=== PATIENT | male | born 1935 | race Caucasian/White ===

== ENCOUNTER 2018-09-09 16:40 | Inpatient (IN) | payer MEDICARE ==
[~2018-09-09] VITALS: Ht 170.2 cm; Wt 84.0 kg
--- OUTSIDE RECORDS SUMMARY | ~2018-09-09 | XMS | Encounter Summary ---
Demographics + + + | Address | [address] | | | [place] [address] | + + + | Home Phone | | + + + | Preferred Language | Unknown | + + + | Marital Status | | + + + | Denominational Affiliation | Unknown | + + + | Race | Unknown | + + + | Ethnic Group | Unknown | + + + Author + + + | Author | [facility] | | | and [place] | + + + | Organization | [facility] | | | and [place] | + + + | Address | Unknown | + + + | Phone | Unavailable | + + + Support + + + + + | Name | Relationship | Address | Phone | + + + + + | Ernesto Flores | ECON | [address] | | | | | [place] | | | | | [address] | | + + + + + Care Team Providers + +------+ + | Care Sld Educational Aide Name | Role | Phone | + +------+ + | Zachariah Girard MD | PCP | Unavailable | + +------+ + Reason for Visit + + + | Reason | Comments | + + + | Phone Management | | + + + | Anticoagulation | | + + + Encounter Details +--------+ + + + + | Date | Type | Department | Care Team | Description | +--------+ + + + + | 08/13/ | Anti-coag | [facility] | Faith Valdez, | Chronic atrial | | 2019 | Telephone | [facility] | [facility] [address] | fibrillation (HCC); | | | | [address] | [place], [place] | Anticoagulation | | | | [place], [place] | [id number] | monitoring, INR | | | | [address] | | range 2-3 | | | | [phone] | | | +--------+ + + + + Social History + +-------+ +--------+ + | Tobacco Use | Types | Packs/Day | Years | Date | | | | | Used | | + +-------+ +--------+ + | Former Smoker | | 1 | 15 | Quit: 05/04/1969 | + +-------+ +--------+ + + +---+---+---+ | Smokeless Tobacco: | | | | | Never Used | | | | + +---+---+---+ + + +---------+ + | Alcohol Use | Drinks/We | oz/Week | Comments | | | ek | | | + + +---------+ + | Yes | 0 | 0.0 | typically one beer per day | | | Standard | | | | | drinks or | | | | | | | | | | equivalen | | | | | t | | | + + +---------+ + + + + | Sex Assigned at | Date Recorded | | | | + + + | Not on file | | + + + + + + + | Job Start Date | Occupation | Industry | + + + + | Not on file | Not on file | Not on file | + + + + + + + + | Travel History | Travel Start | Travel End | + + + + + + | No recent travel history available. | + + documented as of this encounter Progress Notes Faith Valdez, [facility] - 08/13/2018 1415 PDT08/13/18 Patient out traveling , snowbirding. I NR was faxed to us from [facility] in [place], [place]. INR was drawn 08/06/18 and a repo rt was printed on 08/12/18 and it was faxed to us. The INR = 1.9. (within variance of our pro tocol) , so he is in his goal range. I called Mr. Flores on the phone. Let him know the resu lts and to keep taking Warfarin 5mg po daily. Mr. Flores will be back in [place] in a w weeks. Will send note to [facility] to resume his INR monitoring . Next due around 09/10 (4 weeks). [email or web address] braun in this encounter Plan of Treatment +--------+ + + + + | Date | Type | Specialty | Care Team | Description | +--------+ + + + + | 09/28/ | Procedure | Cardiology | Tyrese Fallon MD | | 2018 | visit | | [address] | | | | | | [place], [place] | | | | | | [phone] | | | | | | | | +--------+ + + + + | 01/24/ | Office | Primary Care | Zachariah Girard, | | 2018 | Visit | | [address] | | | | | | [place] | | | | | | [address] | | | | | | | | +--------+ + + + + documented as of this encounter Procedures + +--------+ + + + | Procedure Name | Priori | Date/Time | Associated Diagnosis | Comments | | | ty | | | | + +--------+ + + + | EXTERNAL LAB: | Routin | 08/06/2018 | | Results for this | | ANASTASIIA INR | e | | | procedure are in the | | | | | | results section. | + +--------+ + + + documented in this encounter Results External Lab: Anastasiia INR (08/06/2018) + +-------+ + + + | Component | Value | Ref Range | Performed | Pathologist | | | | | At | Signature | + +-------+ + + + | INR, | 1.9 | | | | | External | | | | | + +-------+ + + + + + | Specimen | + + | Blood | + + documented in this encounter Visit Diagnoses + + | Diagnosis | + + | Chronic atrial fibrillation (HCC) Atrial fibrillation | + + | Anticoagulation monitoring, INR range 2-3 Encounter for long-term (current) use of | | anticoagulants | + + documented in this encounter"
--- OUTSIDE RECORDS SUMMARY | ~2018-09-09 | XMS | Encounter Summary ---
Demographics + + + | Address | [address] | | | [place] [address] | + + + | Home Phone | | + + + | Preferred Language | Unknown | + + + | Marital Status | | + + + | Gnosticist Affiliation | Unknown | + + + | Race | Unknown | + + + | Ethnic Group | Unknown | + + + Author + + + | Author | [facility] | | | and [place] | + + + | Organization | [facility] | | | and [place] | [...] [place] | | | | | [address] | | + + + + + Care Team Providers + +------+ + | Care Hub Borer Name | Role | Phone | + +------+ + | Zachariah Girard MD | PCP | Unavailable | + +------+ + Reason for Visit +--------+ + | Reason | Comments | +--------+ + | LABS | | +--------+ + Encounter Details +--------+ + + + + | Date | Type | Department | Care Team | Description | +--------+ + + + + | 06/22/ | Telephone | [facility] | Zachariah Girard, | LABS | | 2019 | | [facility] | [address] | | | | | [facility]IC [facility] | [place], [place] | | | | | [address] | [address] | | | | | [place], [place] | | | | | | [address] | | | | | | [phone] | | | +--------+ + + + [...] + + documented as of this encounter Plan of Treatment +--------+ + + + + | Date | Type | Specialty | Care Team | Description | +--------+ + + + + | 09/28/ | Procedure | Cardiology | Tyrese Fallon MD | | | 2018 | visit | | [address] | | | | | | [place] | | | | | | [phone] | | | | | | | | +--------+ + + + + | 01/24/ | Office | Primary Care | Zachariah Girard, | | | 2018 | Visit | | [address] | | | | | | [place] | | | | | | [address] | | | | | | | | +--------+ + + + + documented as of this encounter Visit Diagnoses Not on filedocumented in this encounter"
--- OUTSIDE RECORDS SUMMARY | ~2018-09-09 | XMS | Encounter Summary ---
Demographics + + + | Address | [address] | | | [place] [address] | + + + | Home Phone | | + + + | Preferred Language | Unknown | + + + | Marital Status | | + + + | Zoroastrian Affiliation | Unknown | + + + | Race | Unknown | + + + | Ethnic Group | Unknown | + + + Author + + + | Author | [facility] | | | and [place] | + + + | Organization | [facility] | | | and [place] | + + + | Address | Unknown | + + + | Phone | Unavailable | + + + Support + + + + + | Name | Relationship | Address | Phone | + + + + + | Ernesto Flores | ECON | [address] | | | | | [place] | | | | | [address] | | + + + + + Care Team Providers + +------+ + | Care Production Control Scheduler Name | Role | Phone | + +------+ + | Zachariah Girard MD | PCP | Unavailable | + +------+ + Encounter Details +--------+ + + + + | Date | Type | Department | Care Team | Description | +--------+ + + + + | 02/25/ | Abstract | [facility] | Era Zachariah Nieto, | | | 2018 | | [facility] | [address] | | | | | CL[facility] | [place], [place] | | | | | [address] | [address] | | | | | [place], [place] | | | | | | [address] | | | | | | [phone] | | | +--------+ + + + [...] | Tyrese Fallon MD | | | 2019 | visit | | [address] | | | | | | [place], [place] | | | | | | [address] | | | | | | | | +--------+ + + + + | 01/24/ | Office | Primary Care | Zachariah Girard, | | | 2018 | Visit | | [address] | | | | | | [place] | | | | | | [address] | | | | | | | | +--------+ + + + + documented as of this encounter Procedures + +--------+ + + + | Procedure Name | Priori | Date/Time | Associated Diagnosis | Comments | | | ty | | | | + +--------+ + + + | EXTERNAL LAB: | Routin | 06/23/2018 | | Results for this | | HEMOGLOBIN A1C | e | | | procedure are in the | | | | | | results section. | + +--------+ + + + documented in this encounter Results External Lab: Hemoglobin A1c (06/23/2018) + +-------+ + + + | Component | Value | Ref Range | Performed | Pathologist | | | | | At | Signature | + +-------+ + + + | Hemoglobin | 6.7 | % | | | | A1c, | | | | | | external | | | | | + +-------+ + + + + + | Specimen | + + | Blood | + + documented in this encounter Visit Diagnoses Not on filedocumented in this encounter"
--- OUTSIDE RECORDS SUMMARY | ~2018-09-09 | XMS | Clinical Summary ---
Demographics + + + | Address | [address] | | | [place] [address] | + + + | Home Phone | | + + + | Preferred Language | Unknown | + + + | Marital Status | | + + + | Presybeterian Affiliation | Unknown | + + + | Race | Unknown | + + + | Ethnic Group | Unknown | + + + Author + + + | Author | [facility] | | | and [place] | + + + | Organization | [facility] | | | and [place] | + + + | Address | Unknown | + + + | Phone | Unavailable | + + + Support + + + + + | Name | Relationship | Address | Phone | + + + + + | Ernesto Flores | ECON | [address] | | | | | [place] | | | | | [address] | | + + + + + Care Team Providers + +------+ + | Care Barrel Polisher Name | Role | Phone | + +------+ + | Zachariah Girard MD | PP | Unavailable | + +------+ + Allergies No Known Allergies Medications + + + +---------+------+------+-------+ | Medication | Sig | Dispensed | Refills | Star | End | Statu | | | | | | t | Date | s | | | | | | Date | | | + + + +---------+------+------+-------+ | Blood Glucose | 1 strip by Does not | | 0 | | | Activ | | Monitoring Suppl | apply route Daily. | | | | | e | | (ONE TOUCH ULTRA) | | | | | | | + + + +---------+------+------+-------+ | albuterol | Inhale 2 puffs into | | 0 | | | Activ | | (VENTOLIN HFA) 90 | the lungs every 4 | | | | | e | | mcg/puff inhaler | hours as needed. | | | | | | + + + +---------+------+------+-------+ | PATANASE 0.6 % | by Nasal route 2 | | 0 | 05/1 | | Activ | | SOLN | times daily. | | | 2/20 | | e | | | | | | 14 | | | + + + +---------+------+------+-------+ | atorvaSTATin | Take 80 mg by mouth | | 0 | | | Activ | | (LIPITOR) 80 MG | nightly. | | | | | e | | tablet | | | | | | | + + + +---------+------+------+-------+ | fluticasone | 2 sprays by Nasal | | 0 | 06/0 | | Activ | | (FLONASE) 50 | route Daily as | | | 2/20 | | e | | mcg/nasal spray | needed. | | | 15 | | | + + + +---------+------+------+-------+ | aspirin 81 mg EC | Take 81 mg by mouth. | | 0 | | | Activ | | tablet | | | | | | e | + + + +---------+------+------+-------+ | metoprolol | Take 50 mg by mouth | | 0 | | | Activ | | succinate | Daily. | | | | | e | | (TOPROL-XL) 50 mg 24 | | | | | | | | hr tablet | | | | | | | + + + +---------+------+------+-------+ | lisinopril | TAKE 1 TABLET BY | 90 | 0 | 06/2 | | Activ | | (PRINIVIL,ZESTRIL) | MOUTH DAILY | tablet | | 6/20 | | e | | 2.5 MG tablet | | | | 18 | | | + + + +---------+------+------+-------+ | | Take 1-2 tablets by | 30 | 0 | 08/1 | | Activ | | oxyCODONE-acetaminop | mouth every 6 hours | tablet | | 3/20 | | e | | hen (PERCOCET) 5-325 | as needed for Pain. | | | 18 | | | | mg per | | | | | | | | tabletIndications: | | | | | | | | Acute pain of right | | | | | | | | knee | | | | | | | + + + +---------+------+------+-------+ | | Take 2 tablets by | 360 | 3 | 08/1 | | Activ | | glipiZIDE-metFORMIN | mouth 2 times daily | tablet | | 7/20 | | e | | (METAGLIP) 2.5-250 | (before meals). TAKE | | | 18 | | | | MG per tablet | 1 TABLET BY MOUTH | | | | | | | | TWICE DAILY | | | | | | + + + +---------+------+------+-------+ | glucose blood | Apply 1 each | 100 | 3 | 08/2 | | Activ | | test strips (ONE | topically Daily. | each | | 0/20 | | e | | TOUCH ULTRA TEST) | | | | 18 | | | | stripIndications: | | | | | | | | Diabetic peripheral | | | | | | | | neuropathy (HCC) | | | | | | | + + + +---------+------+------+-------+ | lisinopril | TAKE 1 TABLET BY | 90 | 1 | 11/2 | | Activ | | (PRINIVIL,ZESTRIL) | MOUTH DAILY | tablet | | 6/20 | | e | | 2.5 MG tablet | | | | 18 | | | + + + +---------+------+------+-------+ | montelukast | TAKE 1 TABLET BY | 90 | 1 | 11/2 | | Activ | | (SINGULAIR) 10 mg | MOUTH EVERY DAY | tablet | | 6/20 | | e | | tablet | | | | 18 | | | + + + +---------+------+------+-------+ | warfarin | Take 1 tablet by | 90 | 1 | 05/0 | | Activ | | (COUMADIN) 5 mg | mouth Daily. | tablet | | 9/20 | | e | | tablet | | | | 19 | | | + + + +---------+------+------+-------+ | warfarin | TAKE 1 TABLET BY | 90 | 1 | 05/1 | 05/0 | Disco | | (COUMADIN) 5 mg | MOUTH DAILY OR | tablet | | 8/20 | 8/20 | ntinu | | tablet | DIRECTED BY CLINIC | | | 18 | 19 | ed | + + + +---------+------+------+-------+ Active Problems + + | Patient Care Coordination Note | + + | PREVENTIVE PLAN FOR | | Maida Flores Date 12/16/2016 Medicare Covered Services and Your | | Long-Term Plan: Preventive Service Frequency for Medicare Coverage Last done | | Plan Annual Wellness Visit Yearly 10/04/2015 Annual Vaccinations | | Influenza Vaccine Yearly - Every Fall Pneumococcal Vaccine - PPSV-23 | | Once after age 65 09/07/2008 Complete Pneumococcal Vaccine - PCV-13 Once after age | | 65 2017 DONE Zoster (Shingles) Vaccine - Covered partially with Part D Once (age | | 60-80) Not on file recommended Diphtheria and Tetanus (DT) At time of injury | | only Not on file Time of injury Hep B Vaccine Mod/High Risk Once Not on file | | Discuss Prostate Cancer PSA lab (if appropriate) Yearly done in | | 2010 Not recommended at your age Colorectal Cancer Fecal Occult Blood Test | | Yearly OR - - Colonoscopy Every 10 years 2006 Consider repeat in 2017, but | | probably not necessary since you haven't had polyps High Risk (History of polyps, | | family history of colon cancer/polyps) Every 5 years - - Cardiovascular | | Screening Cholesterol/Lipid Tests Every 5 years 10/22/2016 Yearly Ultrasound for | | AAA - Welcome to Medicare - Only [facility] AAA or males age 65-75 and a history of | | tobacco use Once - n/a- Diabetes Screening Glucose Test Yearly | | 12-05-17 (fasting CMP) Yearly Screening Glucose Test if Pre-Diabetic Twice a year | | - - Nutrition Evaluation Varies - - Additional Covered Services | | Hepatitis C Screening One time if born between 8029-7880 - n/a- End of life | | planning Consider yearly discussion Discuss yearly Discuss yearly Additional | | Recommendations: Diet: Exercise: I recommend moderate exercise (such as walking, | | swimming, gardening) for a total of at least 30 minutes at least five days per week. | | Work out with light weights at least a couple of times per week Yoga, sushil chi, and | | simple balance exercises at home can help prevent falls Fall Prevention Plan: | | Other: Additional Recommendations:You could read lots of books and articles about what | | a healthy lifestyle looks like. However, most people don't have the time to read those | | books and articles - let alone follow their instructions. Here is a few simple targets | | that can make a big impact on living longer and better.FORMULA FOR HEALTH0 - NO | | smoking, tobacco use. Also NO sunburns - please use sunscreen to protect yourself. 5 - | | Servings of fruits and vegetables per day 10 - Minutes of meditation per day30 - Keep | | your body mass index under this number (your Body mass index is 27.88 kg/m .)150 - | | minutes of moderate paced exercise per week - an example is walking at a pace where you | | can hold a conversation but would have a hard time singing. Another option is 90 | | minutes of high intensity exercise weekly such as running. Quick Reference | | InformationServices Ordered Today: | | | |Additional Recommendations: | | Diet: | | | |Exercise: | | I recommend moderate exercise (such as walking, swimming, gardening) for a total of at l east 30 minutes at least five days per week. | | Work out with light weights at least a couple of times per week | | Yoga, sushil chi, and simple balance exercises at home can help prevent falls | | Fall Prevention Plan: | | | |Other: | | | | | |Additional Recommendations: | |You could read lots of books and articles about what a healthy lifestyle looks like. Howev er, most people don't have the time to read those books and articles - let alone follow thei r instructions. | |Here is a few simple targets that can make a big impact on living longer and better. | | | |FORMULA FOR HEALTH | | | |0 - NO smoking, tobacco use. Also NO sunburns - please use sunscreen to protect yourself. | | | |5 - Servings of fruits and vegetables per day | | | |10 - Minutes of meditation per day | | | |30 - Keep your body mass index under this number (your Body mass index is 27.88 kg/m .) | | | |150 - minutes of moderate paced exercise per week - an example is walking at a pace where y ou can hold a conversation but would have a hard time singing. Another option is 90 minutes of high intensity exercise weekly such as running. 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 | + + + +---+ | CAD (coronary artery disease) | | + +---+ + + | Overview: s/p CABG 3 vessels, 08/03, [facility]; redo 02/10 1 | | vessel: rSVG to mid-distal LAD, TIERNEY DEE Cath 10/21/13 | | with SVG-LAD PCI, Dr Mercado, Tierney Dee Last Assessment & | | Plan: Discussed his chest pain, need to make sure that he | | follows up with cardiology. Nitroglycerin prescription given. | | Advised to seek care sooner if worsening symptoms. | + + + +---+ | Hypercholesterolemia | | + +---+ + + | Last Assessment & Plan: At goal, continue to follow, no | | change in medications, although may consider higher potency | | statin based on newest guidelines. | + + + +---+ | Restless legs syndrome | | + +---+ | Rhinitis, allergic | | + +---+ | Sleep apnea | | + +---+ + + | Overview: 12/23/2017: Last visit was in 2010. He continues to | | use cpap nightly. Has respironics REmStar 30/30 nights, 29/30 | | nights >=4 hours, current pressure [id number], no AHI Last | | Assessment & Plan: Assessment and Plan1. Central and | | Obstructive Sleep Apnea-Hypopnea Syndrome,moderate (AHI: 25.4) | | with the patient continuing to have good treatment compliance and | | clinical improvement. Questions regarding the treatment were | | answered. He continues to use cpap nightly. Has respironics | | REmStar 30/30 nights, 29/30 nights >=4 hours, current pressure | | [id number], no AHI. His cpap is well over the 5 year life span, so | | will order a new autopap. PLAN: 1. Order Autopap at 9 | | cmH2O to [id number] 2. Try new nasal mask3. Return for follow up in | | one year or earlier if there is any problem | + + + +---+ | Tachy-lorie syndrome | | + +---+ + + | Overview: Story: DDDR pacemaker | + + + +---+ | Type 2 diabetes, controlled, with peripheral neuropathy | | + +---+ + + | Overview: Problem onset is 1999; Last Assessment & Plan: | | Essentially at goal. No change in medications. Encouraged to | | work on regular exercise, healthy diet, continue to follow A1c. | + + Resolved Problems + + + + | Problem | Noted | Resolved | | | Date | Date | + + + + | Atrial fibrillation | 11/18/19 | | | | | 6 | + + + + Encounters +--------+ + + + + | Date | Type | Specialty | Care Team | Description | +--------+ + + + + | 09/08/ | Refill | | Zachariah Girard, | Medication Refill | | 2018 | | | MD | | +--------+ + + + + | 08/13/ | Anti-coag | | Faith Valdez, | Chronic atrial | | 2018 | Telephone | | [facility] | fibrillation (HCC); | | | | | | Anticoagulation | | | | | | monitoring, INR | | | | | | range 2-3 | +--------+ + + + + | 06/28/ | Abstract | | Zachariah Girard, | | | 2018 | | | MD | | +--------+ + + + + | 06/22/ | Telephone | | Zachariah Girard, | LABS | | 2018 | | | MD | | +--------+ + + + + from Last 3 Months Immunizations + + + + | Name | Dates Previously Given | Next Due | + + + + | PNEUMOCOCCAL | 12/16/2016 | | | CONJUGATE 13-VALENT | | | | (PCV13) | | | + + + + | PNEUMOCOCCAL | 09/07/2008 | | | POLYSACCHARIDE | | | | 23-VALENT (PPSV23) | | | + + + + Family History + + + + + | Medical History | Relation | Name | Comments | + + + + + | Dementia | Brothpradeep | Rodney | | | | | - half | | | | | brother | | + + + + + | Parkinsonism | Brother | Rodney | | | | | - half | | | | | brother | | + + + + + | Prostate cancer | Father | | possible, apparently "no trace of it" at | | | | | time of surgery | + + + + + | Ulcer disease | Father | | | + + + + + | Liver disease | Mother | | Alcoholic liver disease | + + + + + | No known problems | Sister | Elisa - | | | | | half | | | | | sister | | + + + + + + + + + + | Relation | Name | Status | Comments | + + + + + | Brother | Rodney - | | Parkinsonian dementia | | | half | (Age | | | | brother | 67) | | + + + + + | Brother | Xavier | | substance abuse | | | | (Age | | | | | 51) | | + + + + + | Father | | | heart, kidney disease | | | | (Age | | | | | 76) | | + + + + + | Maternal Aunt | No | Alive | | | | Children | | | | | (only | | | | | step) | | | + + + + + | Mother | | | Laennec's cirrhosis | | | | (Age | | | | | 42) | | + + + + + | Sister | Elisa - | Alive | | | | half | | | | | sister | | | + + + + + Social History + [...] recent travel history available. | + + Last Filed Vital Signs + + + + | Vital Sign | Reading | Time Taken | + + + + | Blood Pressure | 142/60 | 02/22/2018945 PDT | + + + + | Pulse | 74 | 02/22/2018945 PDT | + + + + | Temperature | 36.8 C (98.3 F) | 12/16/2016 1033 PDT | + + + + | Respiratory Rate | 16 | 02/22/2018945 PDT | + + + + | Oxygen Saturation | 98% | 02/22/2018945 PDT | + + + + | Inhaled Oxygen | - | - | | Concentration | | | + + + + | Weight | 80.3 kg (177 lb) | 02/22/2018945 PDT | + + + + | Height | 171 cm (5' 7.32") | 12/18/20173 PDT | + + + + | Body Mass Index | 27.46 | 12/18/2017 1503 PDT | + + + + Plan of Treatment +--------+ + + + + | Date | Type | Specialty | Care Team | Description | +--------+ + + + + | 09/28/ | Procedure | | Tyrese Fallon MD | | | 2018 | visit | | [address] | | | | | | [place], [place] | | | | | | [id number] | | | | | | | | +--------+ + + + + | 01/24/ | Office | | Zachariah Girard, | | | 2018 | Visit | | [address] | | | | | | [place] | | | | | | [id number] | | | | | | | | +--------+ + + + + + + + + + | Health Maintenance | Due Date | Last Done | Comments | + + + + + | Diabetic Eye Exam | | | | | | 6 | | | + + + + + | Vaccine: | | | | | Dtap/Tdap/Td (1 - | 7 | | | | Tdap) | | | | + + + + + | Vaccine: Zoster (1 | | | | | of 2) | 8 | | | + + + + + | Diabetic Foot Exam | | 10/05/2014 | | | | 6 | | | + + + + + | Primary Care | | 02/22/2018, 12/23/2017, | | | Outreach (Very | 8 | 12/18/2017, Additional history | | | Intense Risk) | | exists | | + + + + + | Adult Annual | | 12/18/2017, 12/18/2017, | | | Wellness Visit | 9 | 12/16/2016, Additional history | | | | | exists | | + + + + + | Hemoglobin A1c | | 06/23/2018, 11/26/2017, | | | Screening | 9 | 06/26/2017, Additional history | | | | | exists | | + + + + + | Vaccine: Influenza | | | | | (Season Ended) | 9 | | | + + + + + | Vaccine: | Completed | 12/16/2016, 09/07/2008 | | | Pneumococcal 65+ | | | | | High/Highest Risk | | | | + + + + + Implants + +--------+------+ +--------+--------+--------+ | Implanted | Type | Area | Manufacture | Device | Shelf | Model | | | | | r | | Expira | / | | | | | | Identi | tion | Serial | | | | | | fier | Date | / Lot | + +--------+------+ +--------+--------+--------+ | Alead-08/20/2001Implanted: | Lead | | [facility] [place] | | | [id number] | | 08/20/2001 (Quantity not on | | | MEDICAL - | | | /[id number] | | file) | | | STJU | | | 4 / | + +--------+------+ +--------+--------+--------+ | Rv Lead-08/20/2001Implanted: | Lead | | [facility] [place] | | | [id number] | | 08/20/2001 (Quantity not on | | | MEDICAL - | | | /[id number] | | file) | | | STJU | | | 1 / | + +--------+------+ +--------+--------+--------+ | Kgfh-Xlolyefxl-3/15/2011Impla | Pacema | | [facility] [place] | | | [id number] | | nted: 11/15/2010 by Vasyl | rodolfo | | MEDICAL - | | | | | Tyrese Jeffers MD (Quantity not on | | | STJU | | | /[id number] | | file) | | | | | | 20 / | + +--------+------+ +--------+--------+--------+ Procedures + +--------+ + + + | Procedure Name | Priori | Date/Time | Associated Diagnosis | Comments | | | ty | | | | + +--------+ + + + | EXTERNAL LAB: | Routin | 08/06/2018 | | Results for this | | PROTIME INR | e | | | procedure are in the | | | | | | results section. | + +--------+ + + + | EXTERNAL LAB: | Routin | 06/23/2018 | | Results for this | | HEMOGLOBIN A1C | e | | | procedure are in the | | | | | | results section. | + +--------+ + + + | LABS - EXTERNAL SCAN | | 06/23/2018 | | Results for this | | | | 0:00 PST | | procedure are in the | | | | | | results section. | + +--------+ + + + from Last 3 Months Results External Lab: Protime INR (08/06/2018) + +-------+ + + + [...] + + | Blood | + + External Lab: Hemoglobin A1c (06/23/2018) + +-------+ [...] + + | Blood | + + LABS - EXTERNAL SCAN (06/23/2018 0:00 PST) + + + | Narrative | Performed At | + + + | Ordered by an | | | unspecified provider. | | + + + from Last 3 Months Insurance + +--------+ +--------+ +---------+--------+ | Payer | Benefi | Subscriber | Effect | Phone | Address | Type | | | t Plan | ID | deborah | | | | | | / | | Dates | | | | | | Group | | | | | | + +--------+ +--------+ +---------+--------+ | MEDICARE | MEDICA | [id number] | 06/04/19 | [phone] | | Medica | | | RE | | 03-Pre | 5 | | re | | | PART A | | sent | | | | | | AND B | | | | | | + +--------+ +--------+ +---------+--------+ | AARP | AARP | [id number] | 06/04/19 | [phone] | | Indemn | | | MDCR | | 03-Pre | 0 | | ity | | | SUPPL | | sent | | | | + +--------+ +--------+ +---------+--------+ | MEDICARE | ACO | [id number] | | [phone] | | Medica | | | MEDICA | | 016-Pr | 5 | | re | | | RE A | | esent | | | | | | AND B | | | | | | | | RMACO | | | | | | + +--------+ +--------+ +---------+--------+ | AARP | AARP | [id number] | 06/04/19 | [phone] | | Indemn | | | MDCR | | 03-Pre | 0 | | ity | | | SUPPL | | sent | | | | + +--------+ +--------+ +---------+--------+ + +--------+ +--------+ + + | Guarantor Name | Accoun | Relation to | Date | Phone | Billing Address | | | t Type | Patient | of | | | | | | | | | | + +--------+ +--------+ + + | Harpal Flores | Person | Self | [birth year] | [address] | | | al/[place] | | 1936 | [phone] | | | [address] | | | [address] (Home) | [place] [address] | + +--------+ +--------+ + + | Harpal Flores | Person | Self [birth year] | [address] | | | al/Fam | | 1936 | [phone] | [address] | | | [address] | | | [address] (Home) | [place] [address] | + +--------+ +--------+ + + Advance Directives Patient has advance care planning documents on file. For more information, please contact:Annemarie Merged with [facility] [place] [address]
--- OUTSIDE RECORDS SUMMARY | ~2018-09-09 | XMS | Encounter Summary ---
Demographics + + + | Address | [address] | | | [place] [address] | + + + | Home Phone | | + + + | Preferred Language | Unknown | + + + | Marital Status | | + + + | Spiritism Affiliation | Unknown | + + + | Race | Unknown | + + + | Ethnic Group | Unknown | + + + Author + + + | Author | [facility] | | | and [place] | + + + | Organization | [facility] | | | and [place] | + + + | Address | Unknown | + + + | Phone | Unavailable | + + + Support + + + + + | Name | Relationship | Address | Phone | + + + + + | Ernesto Flores | ECON | [address] | | | | | [place] | | | | | [address] | | + + + + + Care Team Providers + +------+ + | Care Med Peds Name | Role | Phone | + +------+ + | Zachariah Girard MD | PCP | Unavailable | + +------+ + Reason for Visit + + + | Reason | Comments | + + + | Medication Refill | | + + + Encounter Details +--------+--------+ + + + | Date | Type | Department | Care Team | Description | +--------+--------+ + + + | 09/08/ | Refill | [facility] | Zachariah Girard, | Medication Refill | | 2018 | | [facility] | [address] | | | | | [facility] | [place], [place] | | | | | [address] [facility] | [phone] | | | | | [place], [place] | | | | | | [address] | | | | | | [phone] | | | +--------+--------+ + + + Social History + +-------+ [...] RODRIGUEZ | | | | | | [phone] | | | | | | | [...]
[2018-09-09] MEDS ORDERED: COUMADIN5 MG PO (17:06)
[2018-09-09] MEDS ORDERED: GLUCOPHAGE500 MG PO (17:07)
[2018-09-09] MEDS ORDERED: LISINOPRIL2.5 MG PO (17:08)
[2018-09-09] MEDS ORDERED: METOPROLOL SUCC50 MG PO (17:10)
[2018-09-09] MEDS ORDERED: JANUMET XR 50-1 EAC1 PO (17:11)
[2018-09-09] MEDS ORDERED: GLIPIZIDE-METF1 EACH PO (17:14)
[2018-09-09] MEDS ORDERED: MONTELUKAST SOD10 MG PO (17:19)
[2018-09-09] MEDS ORDERED: ASPIR 8181 MG PO (17:20)
--- NOTE | 2018-09-09 20:45 | NUR ---
PT ARRIVED TO UNIT VIA STRECHTER FROM PACU. PT AAOX4 AND RESPONDING APPROPRIATELY. AFIB ON MONITOR. CURRENTLY ON 10L NONREBREATHER, R/T IN ROOM TO ASSESS PT. BOWEL TONES HYPERACTIVE, NO NAUSEA, NO DISTENSION. DUE TO VOID. NO BM. DENIES PAIN. FFP TO BE GIVEN.
--- NOTE | 2018-09-09 21:20 | NUR ---
FFP STARTED AT THIS TIME
--- NOTE | 2018-09-09 21:40 | NUR ---
1 OF 4 FFP COMPLETED, TOLERATED WELL, VITAL SIGNS WNL.
--- NOTE | 2018-09-09 21:46 | NUR ---
2 OF 4 FFP STARTED AT THIS TIME.
--- NOTE | 2018-09-09 22:00 | NUR ---
2 OF 4 FFP COMPLETED AT THIS TIME, PT TOLERATED WELL, VITAL SIGNS WNL.
--- NOTE | 2018-09-09 22:04 | NUR ---
09/09/182203 Sheila Shaw 2042- PT ARRIVES TO CCU ROOM #128. PT IS AROUSING AND MOVING HIS UPPER EXTREMITIES. PT IS NOT TRYING TO PUSH OUT HIS OPA AT THIS TIME. OPA LEFT. REPS EVEN AND UNLABORED. VITAL SIGNS STARTED WHILE THE PT REMAINS ON THE OR STRETCHER. 2043- PT IS TRYING TO PUSH OUT OPA. ANTHONY DANIELS CRNA REMOVES OPA. PT IS RESPONSIVE AND ASKING IF THE PROCEDURE WAS COMPLETE. PT EDUCATED HE WAS IN THE ICU AND HIS PROCEDURE WAS DONE. 2044- PT TRANSFERRED TO HIS ICU BED WITH ASSISTANCE FROM MULTIPLE RN'S AND A SLIDER BOARD. DR. PALM AND DR. CHACON AT THE BEDSIDE. JOCELIN HAMILTON RN TAKES OVER CARE. DR. PALM ASKING FOR 4 MORE UNITS OF FFP TO BE RECEIVED FROM THE LAB. I WENT TO RECEIVE THE UNITS OF FFP. ANTHONY DANIELS CRNA AND DR. PALM AT THE BEDSIDE WITH ANUPAM MONREAL.
--- NOTE | 2018-09-09 22:07 | NUR ---
3 OF 4 FFP COMPLETED AT THIS TIME, PT TOELRATED WELL, VITALS WNL.
--- NOTE | 2018-09-09 22:27 | NUR ---
3 OF 4 FFP COMPLETED AT THIS TIME, PT TOELRATED WELL, VITALS WNL.
--- NOTE | 2018-09-09 22:27 | NUR ---
4 OF 4 FFP COMPLETED AT THIS TIME, PT TOLERATED WELL, VITALS WNL.
--- NOTE | 2018-09-10 00:12 | NUR ---
PHONE CALL RC'D FROM LAB WITH CRITICAL LABS, HGB 6.2 AND HCT 18.5. PHONE CALL TO DR. PALM REGARDING CRITICAL LAB VALUES AND ALSO INFORMED OF LOW PLT OF 79. ORDER RD'D TO TRANFUSE 3 UNITS PRBC AND 2 UNITS PLT, READ BACK AND VERIFIED.
--- NOTE | 2018-09-10 00:15 | NUR ---
NO ACUTE CHANGES. TOLERATING 2L NC. REQUESTING TO USE URINAL. WILL COTINUE TO MONITOR.
--- NOTE | 2018-09-10 00:28 | NUR ---
PT NOTED TO BE IN SUSTAINED VTACH. RNS AND DR. PALM AT BEDSIDE. PT ATTEMPTING TO VOID. ASYMPTOMATIC. VERBAL ORDER RC'D FOR 2.5MG IV LOPRESSOR NOW.
--- NOTE | 2018-09-10 00:45 | NUR ---
2.5 MG IV LOPRESSOR GIVEN. VTACH SPONTANEOUSLY RESOLVED. VITAL SIGNS WNL. WILL COTINUE TO MONITOR.
--- NOTE | 2018-09-10 00:53 | EKG ---
[facility] [address] [place] [address] Signed Atrial fibrillation with frequent ventricular-paced complexes Abnormal QRS-T angle, consider primary T wave abnormality Abnormal ECG No previous ECGs available Confirmed by PUMA PALM MD ([id number]) on 09/10/2018 12:53:47 AM Electronically Signed By: PUMA PALM MD 09/10/18 0053 PATIENT NAME: YUDELKA AMES Electrocardiogram DATE OF : 39 PHYSICIAN: PUMA PALM MD REPORT #: [id number] REPORT IS CONFIDENTIAL AND NOT TO BE RELEASED WITHOUT AUTHORIZATION
--- NOTE | 2018-09-10 01:00 | NUR ---
1 OF 3 PRBC STARTED AT THIS TIME. WILL CONTINUE TO MONITOR.
--- NOTE | 2018-09-10 01:56 | NUR ---
1 OF 3 PRB COMPLETED AT THIS TIME, PT TOLERATED WELL, VITALS WNL.
--- NOTE | 2018-09-10 02:18 | NUR ---
2 OF 3 PRB STARTED AT THIS TIME. WILL CONTINUE TO MONITOR.
--- NOTE | 2018-09-10 03:28 | NUR ---
2 OF 3 PRB COMPLETED AT THIS TIME, PT TOELRATED WELL, VITALS WNL.
--- NOTE | 2018-09-10 03:37 | NUR ---
3 OF 3 PRBC STARTED AT THIS TIME. WILL CONTINUE TO MONITOR.
--- NOTE | 2018-09-10 04:00 | NUR ---
NO ACUTE CHANGES TO ASSESSMENT. REMAINS IN AFIB. 2L NC. PRBC INFUSING AT THIS TIME. WILL OBTAIN LABS ONCE TRANSFUSION COMPLETED. CALL LIGHT WITHIN REACH.
--- NOTE | 2018-09-10 04:53 | NUR ---
3 OF 3 PRBC COMPLETED AT THIS TIME, PT TOLERATED WELL, VITALS WNL. LABS TO BE REDRAWN. WILL CONTINUE TO MONITOR.
--- NOTE | 2018-09-10 05:43 | OR ---
[facility] [address], [place] [address] Signed DATE OF OPERATION: 09/09/2018 SURGEON: Allen Knowles MD PREOPERATIVE DIAGNOSES: 1. Lower gastrointestinal bleed. 2. Hypotension. 3. Anemia. POSTOPERATIVE DIAGNOSES: 1. Lower gastrointestinal bleed. 2. Hypotension. 3. Anemia. PROCEDURES PERFORMED: Placement of left femoral triple-lumen catheter. ESTIMATED BLOOD LOSS: Minimal. INDICATIONS: Harpal is an 83-year-old gentleman who had been in [place] for the winter with his . He is on chronic Coumadin and aspirin because of atrial fibrillation and his pacemaker. They were coming through [place], [place], and stopped at our local [facility]. For at least a couple of days, he has had blood per rectum. They found him down on the floor and brought him into our local emergency room for evaluation. He was found to be anemic with a hemoglobin 9.7 and INR 3.1. BUN is up a little at 28. I was asked to see him as a general surgeon on-call emergently in the ER. Our Internal Medicine Service also was available to him. He had received 2 units of unmatched blood and a dose of vitamin K along with some IV fluids. He seemed to be doing better and his systolic blood pressures were up from the 80s into about 105. I had reviewed all this with Harpal and his and we taken him down to our endoscopy suite for an upper endoscopy. He was intubated and we performed his upper endoscopy. There was no bleeding whatsoever. He had a little bit of petechial hemorrhage in his proximal esophagus just below the upper esophageal sphincter. However, this was not bleeding. He was a little hypotensive and tachycardic into the 140s to 150s with induction. He responded nicely to some additional IV fluids and 4 units of fresh frozen plasma. Once we completed the upper endoscopy, we decided he would need central venous access for ongoing ICU care and monitoring. We are not currently aware of his exact INR, so rather than place an internal jugular or subclavian vein, we chose to use a femoral vein. We were able to Electronically Signed By: ALLEN KNOWLES MD 09/10/18 0543 PATIENT NAME: HARPAL AMES OPERATIVE REPORT DATE OF : 39 REPORT #: [id number] PHYSICIAN: ALLEN KNOWLES MD PCP: OTHER PCP REPORT IS CONFIDENTIAL AND NOT TO BE RELEASED WITHOUT AUTHORIZATION [facility] [address], [place] [address] Signed palpate his left femoral pulse and so the area was prepped and draped in the usual sterile fashion. He was still asleep on the ventilator, so we were able to pass the needle and on the first pass of the needle, I actually entered his artery, so I withdrew. I held pressure for several minutes and after that, there was no evidence of any swelling in the groin we found the femoral vein quite nicely. The wire was able to feed without any resistance whatsoever. There was dark venous blood. The tract was dilated and the dilator curved appropriately. The catheter was inserted over the wire up to the hub and each port was able to draw and flush quite nicely with dark venous nonpulsatile blood. Catheter was sutured in place with interrupted silk sutures. Dry plastic occlusive dressing was applied. After Harpal was weaned from his anesthesia, extubated in the endoscopy suite, and taken over to the ICU in critical but stable condition. Allen Knowles MD ALB/MODL /[id number] cc: Allen Knowles MD Copies: ALLEN KNOWLES MD ~ Electronically Signed By: ALLEN KNOWLES MD 09/10/18 0543 PATIENT NAME: HARPAL AMES OPERATIVE REPORT DATE OF : 37 REPORT #: [id number] PHYSICIAN: ALLEN KNOWLES MD PCP: OTHER PCP REPORT IS CONFIDENTIAL AND NOT TO BE RELEASED WITHOUT AUTHORIZATION
--- NOTE | 2018-09-10 05:43 | CONS ---
[facility] [address], [place] [address] Signed DATE OF CONSULTATION: 09/09/2018 CHIEF COMPLAINT: Rectal bleeding. 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 He had been down in [place] this winter with his . They were on the way home. They stopped here in [place] and spent some time at our local [facility]. He does take Coumadin for atrial fibrillation. He said he has had blood per rectum for couple days. He finally was found down at the [facility]. He was brought to our local emergency room for evaluation. He responded nicely to some IV fluids and 2 units of uncrossmatched blood. His hemoglobin here is 9.7. BUN is up a little at 28, creatinine is 1.15. INR was up at 3.1. In the meantime, our Internal Medicine Service was consulted and I was consulted subsequently. We have fresh frozen plasma thawing currently and he has been given some vitamin K. I was asked to see him urgently in the emergency room to consider upper endoscopy. He and his told me he had a colonoscopy 5 years ago. He said he had diverticulosis but no polyps. PAST MEDICAL HISTORY: Atrial fibrillation, congestive heart failure, silent myocardial infarction, diverticulosis, and type 2 diabetes. PAST SURGICAL HISTORY: Pacemaker, his cardiac stent x1. His colonoscopy about approximately five years ago and resection and repair of his nose following melanoma. SOCIAL HISTORY: He quit smoking. He has one drink a day. 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 His is at [phone]. They live in just outside of [place], [place]. FAMILY HISTORY: Dad had rheumatic heart disease. Other family, he said nothing significant. REVIEW OF SYSTEMS: He had 10 systems reviewed and there is no noted issue. ALLERGIES: None. MEDICATIONS: Coumadin, aspirin, lisinopril, metoprolol, Janumet, glipizide, metformin, and Electronically Signed By: ALLEN KNOWLES MD 09/10/18 0543 PATIENT NAME: YUDELKA AMES CONSULTATION DATE OF : 37 REPORT #: [id number] PHYSICIAN: ALLEN KNOWLES MD PCP: OTHER PCP REPORT IS CONFIDENTIAL AND NOT TO BE RELEASED WITHOUT AUTHORIZATION [facility] [address], [place] [address] Signed montelukast. PHYSICAL EXAMINATION: VITAL SIGNS: His blood pressure was 87/65, it is up over 100 now that he has received some IV fluids and some blood. Heart rate is 80 and is irregular, respiratory rate 18, temperature is 96.5. He is 99% on room air. He is 5 feet 7 inches and 74 kg. GENERAL: Yudelka is an 83-year-old gentleman, who is lying supine in his ER bed. His is at the bedside. He is alert, awake, and interactive. He has had a pretty good mind for detail. LUNGS: Clear to auscultation bilaterally. HEART: Irregularly irregular. ABDOMEN: Benign. LABORATORY DATA: His white blood cell count is 9.4, hemoglobin 9.7, neutrophils 63, platelets 189. His BUN is 28, creatinine 1.15, glucose 208. INR is 3.1, PTT 38. Liver function tests negative. Albumin 3.3. RADIOGRAPHIC STUDIES: None. ASSESSMENT/PLAN: Yudelka is an 83-year-old gentleman, who presents with a GI bleed. He is on Coumadin and aspirin, very well could have upper GI bleed. He has been admitted to Internal Medicine Service and already given 2 units of unmatched blood and some IV fluids or FFPs thawing and he has been given some vitamin K. I have been asked to see him urgently for upper endoscopy. I have reviewed with Yudelka and his the nature of an upper endoscopy in relationship to his previous colonoscopy. He understands that quite well. There is risk including, but not limited to gas, bloating, crampy abdominal pain, bleeding, perforation requiring surgery, and missed diagnosis. In addition, we talked about the possible need for surgery such as a bleeding ulcer. We also discussed the need to protect his airway for this procedure and consequently will have an anesthesia provider to help us in that regard. Yudelka and his have expressed understanding and agreed to above plan. Allen Knowles MD ALB/MODL /[id number] Electronically Signed By: ALLEN KNOWLES MD 09/10/18 0543 PATIENT NAME: YUDELKA AMES CONSULTATION DATE OF : 37 REPORT #: [id number] PHYSICIAN: ALLEN KNOWLES MD PCP: OTHER PCP REPORT IS CONFIDENTIAL AND NOT TO BE RELEASED WITHOUT AUTHORIZATION [address], [place] [address] Signed cc: Allen Knowles MD Copies: ALLEN KNOWLES MD ~ Electronically Signed By: ALLEN KNOWLES MD 09/10/18 0543 PATIENT NAME: KWAKUYUDELAK CONSULTATION DATE OF : 37 REPORT #: [id number] PHYSICIAN: ALLEN KNOWLES MD PCP: OTHER PCP REPORT IS CONFIDENTIAL AND NOT TO BE RELEASED WITHOUT AUTHORIZATION
--- NOTE | 2018-09-10 05:43 | OR ---
[facility] [address], [place] [address] Signed DATE OF OPERATION: 09/09/2018 SURGEON: Allen Knowles MD PREOPERATIVE DIAGNOSES: 1. Gastrointestinal bleed. 2. Anemia. 3. Daily Coumadin and aspirin. POSTOPERATIVE DIAGNOSIS: Mild petechial subcutaneous hemorrhage in proximal esophagus. PROCEDURE PERFORMED: Esophagogastroduodenoscopy without biopsy. ESTIMATED BLOOD LOSS: None. FINDINGS: There was no bleeding in his duodenum, pyloric channel, stomach, or esophagus. There was no evidence of any ulceration old or new. There was no gastritis. INDICATIONS: Harpal is an 83-year-old gentleman who had been in [place] for the winter with his . They had been lived up in the [facility] in [facility]. They were coming to our area and stopped at our local [facility]. He does take Coumadin and aspirin on a daily basis for the history of atrial fibrillation and a pacemaker. He was having some blood apparently per rectum last couple of days. Finally, they found him down the day and somewhat unresponsive. He was brought to the local emergency room for evaluation. He was found to have a hemoglobin of 9.7. BUN at 2.8. INR was elevated at 3.1. Consequently, he has received some IV fluids, vitamin K, and 2 units of uncross matched blood. We just received our fresh frozen plasma and he is on his second unit. I was asked to see him urgently in the emergency room by the ER doctor and the Internal Medicine Service. I met with Harpal and his and he initially had systolic blood pressures in 80s but they were just up over 100 when I was in the room. He was alert, awake, interactive, and quite conversant. He did pass some blood per rectum obviously when I was in the room. Harpal told me he had a colonoscopy about five years ago and was told he had diverticulosis but no polyps. I explained to Harpal and his , we needed to take him down emergently to our endoscopy suite to see if there is any source of bleeding in the stomach or proximal duodenum. I reviewed with him the nature of that Electronically Signed By: ALLEN KNOWLES MD 09/10/18 0543 PATIENT NAME: HARPAL AMES OPERATIVE REPORT DATE OF : 37 REPORT #: [id number] PHYSICIAN: ALLEN KNOWLES MD PCP: OTHER PCP REPORT IS CONFIDENTIAL AND NOT TO BE RELEASED WITHOUT AUTHORIZATION [facility] [address] [place] [address] Signed procedure along with the risks including, but not limited to gas bloating, crampy abdominal pain, bleeding, perforation, requiring surgery, and missed diagnosis. Also, we need to protect his airway and support his blood pressure and continuous resuscitation. Consequently, we asked an anesthesia provider to help us with increased monitoring sedation. They had expressed understanding and wished to proceed. PROCEDURE NOTE: Harpal was taken into our endoscopy suite and placed in the supine semi-recumbent position. He was placed under general endotracheal tube anesthesia. His blood pressure dropped of course as we were given the plasma, we had to support him with pharmacologic agents. His heart rate did jump to the 150s, but with the plasma that is coming down quite nicely. The adult gastroscope was introduced and advanced all the way out into the third portion of the duodenum without difficulty. The duodenum and pyloric channel were completely unremarkable. He had a little retained food in the antrum and up around the fundus of the stomach. It was easily pushed around and we saw no evidence of any blood, bleeding, or ulcerations in the stomach. There were no gastric or esophageal varices. His GE junction was compliant without stricture. Z-line was intact. There was no Lira mucosa, no distal esophagitis. The middle esophagus was unremarkable. In the proximal esophagus just below the upper esophageal sphincter, he had a few subcutaneous mild petechial hemorrhages. However, when I withdrew the scope, the one area was a bit larger. We taken pictures throughout for photodocumentation. The scope was then completely withdrawn after suctioning out the gas. Harpal seemed to tolerate the procedure well. In the meantime, I have contacted my internal medicine physician who will be here shortly to help us with ongoing resuscitation in the meantime. Allen Knowles MD ALB/MODL /[id number] cc: Allen Knowles MD Copies: ALLEN KNOWLES MD Electronically Signed By: ALLEN KNOWLES MD 09/10/18 0543 PATIENT NAME: HARPAL AMES OPERATIVE REPORT DATE OF : 37 REPORT #: [id number] PHYSICIAN: ALLEN KNOWLES MD PCP: OTHER PCP REPORT IS CONFIDENTIAL AND NOT TO BE RELEASED WITHOUT AUTHORIZATION [address] [address] Signed ~ Electronically Signed By: ALLEN KNOWLES MD 09/10/18 0543 PATIENT NAME: HARPAL AMES OPERATIVE REPORT DATE OF : 37 REPORT #: [id number] PHYSICIAN: ALLEN KNOWLES MD PCP: OTHER PCP REPORT IS CONFIDENTIAL AND NOT TO BE RELEASED WITHOUT AUTHORIZATION
--- NOTE | 2018-09-10 05:50 | NUR ---
1 OF 2 PLT STARTED AT THIS TIME. WILL CONTINUE TO MONITOR.
--- NOTE | 2018-09-10 06:18 | NUR ---
DR. CHACON AT BEDSIDE TO ASSESS PT AND UPDATE PLAN OF CARE.
--- NOTE | 2018-09-10 06:42 | NUR ---
PT HAS RC'D A TOTAL OF 6 UNITS PRBC, 8 UNITS FFP, AND 2 UNITS OF PLT INFUSING NOW. PT HAS REMAINED AAOX4. AFIB THROUGHOUT SHIFT WITH SUSTAINED VTACH EARLIER IN SHIFT THAT RESOLVED SPONTANEOUSLY, METOPROLOL Q6H. LUNG SOUNDS CLEAR, COUGH CONTINUES, 1L NC, WEARS CPAP AT HOME. BOWEL TONES HYPERACTIVE, NO BM, NO NAUSEA OR EMESIS, NO DISTENSION, NPO. VOIDING QS. LEFT FEMORAL LINE IN PLACE AND SALINE LOCKED, DRESSING CHANGED TO BE COMPLETED. BOWEL PREP TO START TO DAY WITH LOWER SCOPE POSSIBLE TOMORROW.
--- NOTE | 2018-09-10 07:20 | NUR ---
1 OF 2 PLT COMPLETED AT THIS TIME. 2 OF 2 STARTED. REPORT GIVEN TO DAY SHIFT NURSES. DAY SHIFT NURSES TO MONITOR PT. ALL QUESTIONS ANSWERED.
--- NOTE | 2018-09-10 09:37 | NUR ---
PATIENT IS IN BED AND DENIES ANY PAIN OR SHORTNESS OF BREATH. PATIENT DRANK ONE AND A QUARTER OF GATORADE WITH MIROLAX AND REQUESTED BED TURK. PATIENT WAS INFORMED TO USE CALL LIGHT WHEN FINISHED. PATIENT STATED UNDERSTANDING AND HAD NO OTHER QUESTIONS OR CONCERNS.
--- NOTE | 2018-09-10 11:00 | NUR ---
PATIENT IS SITTING ON BED TURK IN THE BED FOR ABOUT 10 MINUTES. PATIENT'S IS CONCERNED ABOUT HIM NOT GETTING ENOUGH SLEEP. PATIENT'S WAS INFORMED THAT HE CAN REST BETWEEN BOUTS OF BOWEL EVACUATION. PATIENT IS INSTRUCTED TO USE CALL LIGHT FOR ASSISTANCE. PATIENT IS BEING CHECKED ON PERIODICALLY. PATIENT HAS NO REQUESTS OR QUESTIONS.
--- NOTE | 2018-09-10 11:35 | NUR ---
PATIENT USED CALL LIGHT TO GET ASSISTANCE OFF OF THE BEDPAN. PATIENT HAD 200 ML'S OF BURGANDY BLOODY LIQUID STOOL. PATIENT REQUESTED A BREAK FROM THE BEDPAN FOR A LITTLE WHILE BUT WILL USE CALL LIGHT WHEN READY TO USE BEDPAN AGAIN. PATIENT IS RESTING IN BED AND DENIES ANY PAIN, DIZZINESS, OR SOB.
[2018-09-10] MEDS ORDERED: ATORVASTATIN CA80 MG PO (12:08)
--- NOTE | 2018-09-10 12:28 | NUR ---
PATIENT HAD 50 ML'S OF BURGANDY BLOODY LIQUID STOOL. PATIENT IS SLEEPING WITH CPAP IN PLACE.
--- NOTE | 2018-09-10 13:20 | NUR ---
PATIENT WOKE UP FROM RESTING AND USED CALL LIGHT TO ASK FOR BEDPAN. PATIENT DENIES ANY PAIN AND WAS INSTRUCTED TO USE CALL LIGHT WHEN FINISHED WITH BEDPAN.
--- NOTE | 2018-09-10 14:06 | NUR ---
PATIENT IS ON BEDPAN AND SLEEPING IN BED WITH CPAP IN PLACE. PATIENT'S O2 SATS ARE 97%
--- NOTE | 2018-09-10 14:58 | NUR ---
CENTRAL LINE DRESSING CHANGED AT 1445 BY TRINI Barnes SUPERVISED BY ANUPAM MANUEL. SUTURES ARE IN PLACE, DRIED BLOOD CLEANED AROUND SITE, NO NEW BLOOD PRESENT. PATIENT TOLERATED DRESSING CHANGE WELL. ALL LINES HAVE BEEN FLUSHED WITH 10 ML'S SALINE LOCKED AND CAPPED. PATIENT HAD NO QUESTIONS AT THIS TIME.
--- NOTE | 2018-09-10 18:12 | NUR ---
PATIENT IS USING BEDPAN AND HAS BEEN INSTRUCTED TO USE CALL LIGHT WHEN FINISHED. PATIENT STATED UNDERSTANDING. PATIENT HAS NO COMPLAINT OF PAIN OF SHORTNESS OF BREATH. PATIENT IS RESTING AND HAS NO FURTHER QUESTIONS OR NEEDS.
--- NOTE | 2018-09-10 18:47 | NUR ---
CALLED TO UPDATED ON PT STATUS. PT PASSING BURGANDY LIQUID STOOL. ADDITIONAL 125 MG MIRILAX IN 32 OZ GATORAID ORDERED.
--- NOTE | 2018-09-10 19:47 | NUR ---
REPORT RC'D FROM DAY SHIFT TELECOMM[employer]ICATIONS REPAIRER BILL. REPORTS BOWEL PREP GIVEN, DARK RED STOOL CONTINUES, ADDITIONAL PREP TO START, EDUCATION PACKET GIVEN. PT IN BED AT THIS TIME WITH AT BEDSIDE. FULL ASSESSMENT TO BE COMPLETED.
--- NOTE | 2018-09-10 21:00 | NUR ---
AAOX4, RESPONDING APPROPRIATELY, PUPILS 6MM BILATERALLY AND NORMAL RESPONSE, STATES FEELING RESTLESS AND HALLUCINATIONS, 2MG IV ATIVAN GIVEN. SINUS RHYTHM ON MONITOR. LUNGS CLEAR THROUGHOUT AND TOLERATING ROOM AIR. ABD SOFT, NON DISTENDED, BOWEL TONES ACTIVE X4, BM THIS EVENING. IV SITE FLUSHED, PATENT, WNL, D5L INFUSING AT 150 ML/HR. SKIN INTACT, 4 POINT CORRECTIONAL RESTRAINTS, GAURDS AT BEDSIDE. DENIES PAIN. DENIES OTHER NEEDS. WILL CONTINUE TO MONITOR.
--- NOTE | 2018-09-10 21:10 | NUR ---
patient called to get off of bed luciano with no result. I&Os charted and ANUPAM Liu did his 2100 blood sugar check.
--- NOTE | 2018-09-10 21:15 | NUR ---
1 UNIT INUSLIN GIVEN FOR CBG OF 144. PT OFF BEDPAN, NO BM, REQUESTING TO BE PLACED BACK ON BEDPAN. DENIES OTHER NEEDS. CALL LIGHT WITHIN REACH.
--- NOTE | 2018-09-10 22:04 | NUR ---
PT ASSISTED OF BEDPAN, 200 ML LIQUID STOOL, CLEAR WITH SOME BROWN TO DARK RED COLORING. DENIES OTHER NEEDS. CALL LIGHT WITHIN REACH.
--- NOTE | 2018-09-10 22:44 | NUR ---
CALL LIGHT ANSWERED, PT ASSISTED ONTO BEDPAN, CALL LIGHT WITHIN REACH.
--- NOTE | 2018-09-10 23:20 | NUR ---
PT ASSISTED OF BEDPAN, 300 MLS LIQUID BM WITH CLOTS NOTED. BOWEL PREP COMPLETED AT THIS TIME.
--- NOTE | 2018-09-10 23:57 | NUR ---
CALL LIGHT ANSWERED, PT REQUESTING TO BE PLACED BACK ON BEDPAN. DENIES OTHER NEEDS. CALL LIGHT WITHIN REACH.
--- NOTE | 2018-09-10 23:58 | NUR ---
ASSESSMENT UNCHANGED. BOWEL PREP COMPLETED. NPO AT THIS TIME. WILL CONTINUE TO MONITOR.
--- NOTE | 2018-09-11 02:15 | NUR ---
SERG ARANA INFORMED RN PT HAD LIQUID BM AND VOID. PT CURRENTLY RESTING IN BED WITH EYES CLOSED, NO ACUTE DISTRESS.
--- NOTE | 2018-09-11 05:00 | NUR ---
CALL LIGHT ANSWERED, PT REQUESTING BEDPAN, 100 ML SEMI CLEAR LIQUID BM WITH CLOTS. NO ACUTE CHANGES TO ASSESSMENT. DENIES OTHER NEEDS. CALL LIGHT WITHIN REACH.
--- NOTE | 2018-09-11 05:50 | NUR ---
LAB OBTAINED FROM [facility] LINE. LINE FLUSHING AND DRAWING BACK BLOOD.
--- NOTE | 2018-09-11 06:32 | NUR ---
SECOND BOWEL PREP COMPLETED, SEMI CLEAR LIQUID BM CLOTS REMAIN. PT NPO SINCE MIDNIGHT. VENTRICULAR PACED RHYTHM WITH UNDERLYING AFIB, NO SVT, HR 60-80'S, LOPRESSOR Q6H. LUNGS CLEAR THROUGHOUT ON ROOM AIR. BOWEL TONES HYPERACTIVE, ABD FIRM, NO NAUSEA OR EMESIS. VOIDING QS. SKIN INTACT. IV SITE PATENT, SALINE LOCKED. FEMORAL SITE WNL, ALL LINES FLUSHING WELL AND DRAWING BACK BLOOD, SALINE LOCKED. PT TO HAVE LOWER SCOPE TODAY.
--- NOTE | 2018-09-11 07:30 | NUR ---
REPORT RECIEVED. PATIENT DENEIS PAIN. PLACED ON BED TURK.
--- NOTE | 2018-09-11 08:00 | NUR ---
ASSESSMENT DONE. IS NPO FOR COLONOSCOPY. TOPROL 25 MG PO GIVEN WITH SMALL SIP OF WATER. TALKED WITH PATIENT ABOUT PLAN OF CARE FOR DAY, IS UNDERSTANDING.
--- NOTE | 2018-09-11 09:30 | NUR ---
DR. CHACON HERE TO SEE PATIENT. PATIENT IS W/O C/O. IS IN ROOM.
--- NOTE | 2018-09-11 09:59 | NUR ---
CA GLUC HUNG PER ORDERS.
--- NOTE | 2018-09-11 10:00 | NUR ---
TO OR VIA STRETCHER FOR COLONOSCOPY.
--- NOTE | 2018-09-11 11:01 | NUR ---
09/11/18 1101 Miriam Perera 1051 PATIENT ARRIVES TO CCU VIA STRETCHER. ORAL AIRWAY IN PLACE. OPENS EYES ON TRANSFER TO BED. MASK AT 6 LITERS, RESP EVEN AND UNLABORED. 1052 PATIENT COUGHING, EDUARDO RANGEL REMOVES ORAL AIRWAY, PATIENT BACK TO SLEEP. MASK CONTINUED AT 6 LITERS. 1055 PATIENT SLEEPING, MASK OFF. ROOM AIR SATS >90%. PATIENT PASSING GAS.
--- NOTE | 2018-09-11 11:30 | NUR ---
REPORT RECIEVED FROM [facility] REGISTERED NURSE. PATIENT IS AWAKE AND RESPONDING TO QUESTIONS/COMMANDS.
--- NOTE | 2018-09-11 14:10 | NUR ---
UP TO BR WITH ASSIST TO VOID AND EXPELL MED RUST COLORED STOOL. DENIES DIZZINESS, SHORTNESS OF BREATH. STATES LEGS ARE ALITTLE WEAK. HEART RATE 95 WITH AMBULATION, HR AT REST 77 PRIOR TO AMBULATION.
--- NOTE | 2018-09-11 14:40 | NUR ---
SLEEPING WITH CPAP ON.
--- NOTE | 2018-09-11 16:16 | NUR ---
REMAINS ASLEEP, NO DISTRESS NOTED. NOT AWAKENED FOR ASSESSMENT AT THIS TIME.
--- NOTE | 2018-09-11 16:30 | NUR ---
AWAKE, ASSESSMENT DONE. STATES HE IS FEELING BETTER. NO ACTIVE BLEEDING NOTED.
--- NOTE | 2018-09-11 17:27 | NUR ---
sitting up in bed to eat dinner. in room.
--- NOTE | 2018-09-11 18:00 | NUR ---
AMBULATED IN HALLWAY WITH ASSIST. HR TO 124. DENIES SHORTNESS OF BREATH, DIZZINESS. IS FAIRLY STABLE ON FEET. TO SINK TO BRUSH TEETH.
--- NOTE | 2018-09-11 18:30 | NUR ---
UP TO BR TO EXPELL SMALL AMOUNT OF RUST (ORANGE) STOOL. THEN BACK TO BED. IS ANXIOUS REGARDING DISCHARGE. HAS MANY QUESTIONS.
--- NOTE | 2018-09-11 18:54 | NUR ---
NO FUTHER CHANGES. REPORT TO NEXT SHIFT.
--- NOTE | 2018-09-11 20:05 | NUR ---
IN TO ASSESS PT. IS RESTING WITH CPAP IN PLACE. HAS NO C/O.
--- NOTE | 2018-09-11 20:53 | NUR ---
UP AMB TO BR TO HAS EDWARDO COLORED STOO, PASSED GAS AND VOIDED. HR AT FIRT TO 104 BUT BACK TO 90'S QUICKLY. TONY BEING UP WELL. BACK TO BED, CPAP BACK IN PLACE FOR SLEEP.
--- NOTE | 2018-09-11 22:23 | NUR ---
SLEEPING WITH CPAP IN PLACE. HR 70-80'S.
--- NOTE | 2018-09-12 00:05 | NUR ---
CONT TO SLEEP WITH CPAP IN PLACE. HR 70'S.
--- NOTE | 2018-09-12 00:50 | NUR ---
AWAKENED FOR ASSESSMENT. HAS NO C/O.
--- NOTE | 2018-09-12 03:16 | NUR ---
SLEEPING WELL. DID VOID EARLIER IN URINAL.
--- NOTE | 2018-09-12 03:59 | NUR ---
AWAKE TO VOID. ASSESSMENT DONE. NO C/O.
--- NOTE | 2018-09-12 05:22 | NUR ---
SLEEPING, HR 70'S.
--- NOTE | 2018-09-12 06:11 | NUR ---
AWAKE BUT RESTING AFTER LAB DRAW. HAS HAD A GOOD NIGHT.
--- NOTE | 2018-09-12 07:30 | NUR ---
RECEIVED REPORT FROM [facility]. pt LAYING AWAKE IN BED. UP TO TOILET. STEADY ON FEET. HR UP TO 105. DENIES SOB. UP IN CHAIR. BREAKFAST ORDERED. CALL LIGHT WITHIN REACH.
--- NOTE | 2018-09-12 08:00 | NUR ---
ASSESSMENT DONE. BREAKFAST TRAY ARRIVED. CALL LIGHT WITHIN REACH.
--- NOTE | 2018-09-12 08:20 | OR ---
[facility] [address], [place] [address] Signed DATE OF OPERATION: 09/11/2018 SURGEON: Allen Chacon MD PREOPERATIVE DIAGNOSES: 1. Gastrointestinal bleed. 2. Anemia. 3. Daily Coumadin and aspirin use. POSTOPERATIVE DIAGNOSES: 1. Moderate pandiverticulosis. 2. 3 mm cecal polyp. 3. 7 mm sessile polyp, proximal right colon (tattoo). 4. 5 mm polyp at 90 cm. 5. 5 mm polyp at 25 cm. 6. 4 mm polyp at 6-8 cm. PROCEDURE: Colonoscopy with hot biopsy and injection of tattoo in proximal right colon. ESTIMATED BLOOD LOSS: None. INDICATIONS: Yudelka is an 83-year-old gentleman who takes Coumadin and aspirin chronically. He has a history of open-heart surgery twice and ended up with a pacemaker as well. He has chronic atrial fibrillation. He and his spent the winter in [place] and on the way back came through [place], [place]. They stopped at our local [facility]. He had been having blood per rectum for a couple of days. Apparently, he was found down and brought to our local emergency room. He has received multiple units of packed red blood cells, plasma, and some platelets. Overall he is much improved. We did do his upper endoscopy already and that was essentially unremarkable. In the meantime, we did acquire some of his records and he had a colonoscopy in [address] Jersey Holt in [place], [place]. He was known to have diverticulosis at that time. No prior history of colonic polyps. No family history of colon cancer or polyps. I explained to Yudelka and his it was salomon that he stay until we are sure that he was stable and we could complete his colonoscopy and make sure there was no additional source of bleeding. In the meantime, he actually went through 96 ounces of Gatorade with MiraLAX and was cleaned out nicely. He has been stable otherwise. I explained to Yudelka and his the nature of a colonoscopy and they understand the nature of the test along with the Electronically Signed By: ALLEN CHACON MD 09/12/18 0820 PATIENT NAME: YUDELKA AMES OPERATIVE REPORT DATE OF : 39 REPORT #: [id number] PHYSICIAN: ALLEN CHACON MD PCP: OTHER PCP REPORT IS CONFIDENTIAL AND NOT TO BE RELEASED WITHOUT AUTHORIZATION [facility] [address], [place] [address] Signed risks including, but not limited to gas bloating, crampy abdominal pain, bleeding, perforation, requiring surgery, and missed diagnosis. Also because of Yudelka's advanced age and medical issues including his heart, we asked an anesthesia provider to help us with increased monitoring and sedation with propofol. They had expressed understanding and wished to proceed. PROCEDURE NOTE: Yudelka was taken into our endoscopy suite and placed in the left lateral decubitus position. He was given IV sedation with propofol per our nurse construction plant operator. In the meantime, we reviewed some of his previous records and his last echocardiogram showed his ejection fraction around 55%. A digital rectal exam was performed and this was unremarkable. His prostate was [id number] indurated, but no dominant nodules and not particularly enlarged. The adult colonoscope was introduced and advanced under direct visualization of the camera. He does have [id number] diverticula particular in the sigmoid colon, but all the way around into the cecum itself. It took me a few minutes to get through the sigmoid colon. We used some extra sedation and abdominal compression in order to advance the scope. With the number diverticula that he had, he still had some particulate stool matter in the colon along with some dark clotted blood. Overall, though it was quite satisfactory. There was no evidence of any bright red blood in his colon. We had taken pictures throughout for photodocumentation. We could easily see the appendiceal orifice, the [place] foot, and the ileocecal valve. The scope was then slowly withdrawn. He had a tiny polyp in the cecum, which we removed with the help of hot biopsy forceps. He had a larger 7 mm sessile polyp in the proximal right colon. It was on the backside of a fold. It took us a few bites of the hot biopsy forceps to remove it and destroyed it completely. We placed a small tattoo next to it to haley its location. The other polyps were easily removed with the help of hot biopsy forceps. Upon retroflexion of scope, he really had no additional pathology noted above the anal canal. The gas was then suctioned out and colonoscope removed. Yudelka tolerated procedure quite well. RECOMMENDATIONS: Yudelka will be taken back to his ICU bed, resumed on his diet. He can resume his Coumadin and his aspirin in 1 week. By then, he will be back home in the [place] to follow up with his primary care providers. We will give him an extra copy of the pictures and certainly he can have copies of all of his records as well. Allen Chacon MD Electronically Signed By: ALLEN CHACON MD 09/12/18 0820 PATIENT NAME: YUDELKA AMES OPERATIVE REPORT DATE OF : 39 REPORT #: [id number] PHYSICIAN: ALLEN CHACON MD PCP: OTHER PCP REPORT IS CONFIDENTIAL AND NOT TO BE RELEASED WITHOUT AUTHORIZATION [address] [place], [place] [address] Signed ALB/MODL /[id number] cc: Dr. Fallon Car Changer Jersey Holt MD [place], [place] MD Shahzad Fisher MD [employer], [facility] Zachariah Girard MD [place], [place] Copies: ALLEN CHACON MD ~ Electronically Signed By: ALLEN CHACON MD 09/12/18 0820 PATIENT NAME: YUDELKA AMES OPERATIVE REPORT DATE OF : 39 REPORT #: [id number] PHYSICIAN: ALLEN CHACON MD PCP: OTHER PCP REPORT IS CONFIDENTIAL AND NOT TO BE RELEASED WITHOUT AUTHORIZATION
--- NOTE | 2018-09-12 08:47 | NUR ---
DR CHACON IN ROOM. MEDICATION GIVEN (SEE MAR). MARIEY CLEARED. pt SITTING IN CHAIR WITH AT BEDSIDE. CALL LIGHT WITHIN REACH.
--- NOTE | 2018-09-12 09:30 | NUR ---
DISCHARGE INSTRUCTIONS GIVEN. pt ABLE TO VERBALIZE WHAT TO DO AFTER DISCHARGE AND WHAT SIGNS TO WATCH FOR. ALL QUESTIONS ANSWERED.
== END 2018-09-12 10:00 | disposition home or self-care (01) | DRG 378 ==
LOC: ED 16:40 → CCU 18:31
PROVIDERS: Colon & Rectal Surgery; ADMIT Internal Medicine
PROC: 06HN33Z Insertion of Infusion Device into Left Femoral Vein, Percutaneous Approach (ICD-10-PCS; 2018-09-09)
PROC: 30233K1 Transfusion of Nonautologous Frozen Plasma into Peripheral Vein, Percutaneous Approach (ICD-10-PCS; 2018-09-09)
PROC: 30233N1 Transfusion of Nonautologous Red Blood Cells into Peripheral Vein, Percutaneous Approach (ICD-10-PCS; 2018-09-09)
PROC: 30233R1 Transfusion of Nonautologous Platelets into Peripheral Vein, Percutaneous Approach (ICD-10-PCS; 2018-09-09)
PROC: 0DJ08ZZ Inspection of Upper Intestinal Tract, Via Natural or Artificial Opening Endoscopic (ICD-10-PCS; principal; 2018-09-09 19:40)
PROC: 0DBH8ZX Excision of Cecum, Via Natural or Artificial Opening Endoscopic, Diagnostic (ICD-10-PCS; 2018-09-11)
PROC: 0DBF8ZX Excision of Right Large Intestine, Via Natural or Artificial Opening Endoscopic, Diagnostic (ICD-10-PCS; 2018-09-11)
PROC: 3E0H8KZ Introduction of Other Diagnostic Substance into Lower GI, Via Natural or Artificial Opening Endoscopic (ICD-10-PCS; 2018-09-11)
DX: K57.31 Diverticulosis of large intestine without perforation or abscess with bleeding (principal); D62 Acute posthemorrhagic anemia; I47.1 Supraventricular tachycardia; R23.3 Spontaneous ecchymoses; I48.2 Chronic atrial fibrillation; I25.118 Atherosclerotic heart disease of native coronary artery with other forms of angina pectoris; E11.9 Type 2 diabetes mellitus without complications; I25.2 Old myocardial infarction; K63.5 Polyp of colon; Z87.891 Personal history of nicotine dependence; Z95.0 Presence of cardiac pacemaker; Z79.01 Long term (current) use of anticoagulants; Z95.1 Presence of aortocoronary bypass graft; Z79.84 Long term (current) use of oral hypoglycemic drugs; Z79.82 Long term (current) use of aspirin; Z79.899 Other long term (current) drug therapy
CPT/HCPCS: 36415; 36430; 80048; 80053; 83735; 84100; 85025; 85610; 85730; 86850; 86900; 86901; 86920; 86927; 93005; 93010; 96361; 99291; C9113; J0330; J0610; J1815; J2370; J2405; J2704; J3430; J3475; J7030; J7060; J7120; P9016; P9035